=== PATIENT | female | born 1995 | race American Indian/Alaskan Native ===

== ENCOUNTER 2016-08-02 10:02 | Emergency (ER) | payer MEDICAID, OTHER ==
[2016-08-02 10:23] VITALS: BP 110/70
[2016-08-02] MEDS ORDERED: TYLENOL PO ONE (11:06)
--- NOTE | 2016-08-02 11:37 | Cat Scan Report ---
CT HEAD WITHOUT CONTRAST: 08/02/16 10:02:00 CLINICAL: Dizziness after being struck by a metal bar to the head and face. TECHNIQUE: 5-mm and 2.5-mm noncontrast scans. COMPARISON:None FINDINGS: Motion degrades the quality of the exam. The ventricles and sulci are normal for age. No abnormal density. No mass or mass effect. No hemorrhage, edema or extra-axial collection. The sinuses are clear. Normal orbits and soft tissues. The calvarium and skull base are intact. No fracture identified. IMPRESSION: Normal head CT.
--- NOTE | 2016-08-02 11:56 | XRay Report ---
RIGHT WRIST FOUR VIEWS: 08/02/16 11:07:00 CLINICAL: Trauma and pain. FINDINGS: Normal bones, joints and soft tissues. No fracture or dislocation. IMPRESSION: Normal
--- NOTE | 2016-08-02 12:14 | Emergency Department Report ---
Entered by LATRICE FONG, acting as scribe for FLAVIA FERRARO PA. ED Headache HPI - General Chief Complaint: Headache Stated Complaint: SWOLLEN RT EYE /MIGRAINE Time Seen by Provider: 08/02/16 10:56 Source: patient Exam Limitations: no limitations - History of Present Illness Initial Comments: 21 y/o female presents to ED c/o right facial pain, headache, dizziness, right wrist pain secondary to being struck by a metal bar at work yesterday, denying LOC. Pt states the bar struck her right eye and right arm. She reports associated nausea, but denies vomiting. Pt describes her dizziness as room spinning, and reports visual changes described as seeing dark spots. She states she is able to move her right wrist, but reports pain in supination and pronation. She reports recent in March, and is not currently . She has no additional complaints. Timing/Duration: constant Head Injury Location: other (right eye, cheek) Recent Head Trauma: other (struck by metal bar yesterday at work) Associated Symptoms: facial pain, nausea/vomiting (reports nausea, denies vomiting), vision changes (dark spots in vision), other (dizziness). denies: loss of consciousness Allergies/Adverse Reactions: Allergies No Known Allergies Allergy (Verified 01/10/15 11:17) Home Medications: Ambulatory Orders Caplet 0 mg PO QDAY 08/04/15 Ferrous Sulfate [Feosol 325 MG tab] 325 mg PO BID #60 tablet 03/18/16 HYDROcodone/APAP 5-325 [[place] 5/325] 1 each PO Q6HR PRN #30 tablet 03/18/16 Ibuprofen [Motrin] 800 mg PO Q8HR PRN #30 tablet 03/18/16 Vit W-Ca,Fe,FA(<1 mg) [ Vitamins] 1 each PO DAILY #30 tablet oxyCODONE /ACETAMINOPHEN [Percocet 5/325] 1 tab PO Q6HR PRN #30 tablet 03/20/16 Ibuprofen [Motrin 600 MG tab] 600 mg PO Q8H PRN #30 tablet 08/02/16 ED Review of Systems Comment: All other systems reviewed and negative Eyes: eye pain (right) Gastrointestinal: nausea. denies: vomiting Musculoskeletal: other (reports right wrist pain, painful range of motion) Skin: denies: lesions Neurological: headache, other (reports dizziness, room spinning, denies LOC) ED Past Medical Hx - Past Medical History Previous Medical History?: Yes Hx Hypertension: No Hx Congestive Heart Failure: No Hx Diabetes: No Hx Deep Vein Thrombosis: No Hx Renal Disease: No Hx Sickle Cell Disease: No Hx Seizures: No Hx Asthma: No Hx COPD: No Hx HIV: No Additional medical history: etopic . Miscarriage x 2 - Surgical History Additional Surgical History: etopic - Social History Smoking Status: Never Smoker Substance Use Type: None - Medications Home Medications: Home Medications Medication Instructions Recorded Confirmed Last Taken Type Caplet 0 mg PO QDAY 08/04/15 03/18/16 03/17/16 History Ferrous Sulfate [Feosol 325 MG tab] 325 mg PO BID #60 tablet 03/18/16 Unknown Rx HYDROcodone/APAP 5-325 [[place] 1 each PO Q6HR PRN #30 tablet 03/18/16 Unknown Rx 5/325] Ibuprofen [Motrin] 800 mg PO Q8HR PRN #30 tablet 03/18/16 Unknown Rx Vit W-Ca,Fe,FA(<1 mg) 1 each PO DAILY #30 tablet 03/18/16 Unknown Rx [ Vitamins] oxyCODONE /ACETAMINOPHEN [Percocet 1 tab PO Q6HR PRN #30 tablet 03/20/16 Unknown Rx 5/325] Ibuprofen [Motrin 600 MG tab] 600 mg PO Q8H PRN #30 tablet 08/02/16 Unknown Rx ED Physical Exam - General Limitations: No Limitations - Other Other exam information: GENERAL: Patient is alert and oriented x 3. No apparent distress, normal gait, atraumatic. HEAD: Tenderness to palpation over right lower cheek, lower periorbital structures. EYES: Extraocular movements are intact. Pupils are equal, round, and reactive to light and accommodation. EARS: Symmetrical, atraumatic, non tender, ear canal clear with moderate cerumen , tympanic membrane non inflamed. Gross auditory nml bilaterally. NOSE: Nose symmetrical, nontender. Nares appeared normal. MOUTH:Mouth is well hydrated and without lesions. Mucous membranes are moist. Uvula midline. Tongue not elevated. Posterior pharynx clear, no exudate or lesions. Tonsils are not erythematous or swollen. Patent airway. NECK: Supple. Non edematous, no carotid bruits. No lymphadenopathy or thyromegaly. LUNGS: Symmetrical with respiration. No wheezing, rales or crackles, CTAB. HEART: Regular rate and rhythm with normal S1/S2 present. No murmurs, rubs, or gallops. EXTREMITIES/MUSCULOSKELETAL: Noted is decreased range of motion with supination and pronation of right wrist, with tenderness to the lateral aspect of the right wrist, with no evidence of swelling. Patient is able to make a fist and move her fingers in her right hand. Strength 4/5 right hand. No cyanosis, clubbing, rash, lesions or edema. Pulses 2+ bilaterally. SKIN: Warm and dry. No lesions, ulceration or induration present NEUROLOGIC: No focal deficit., Cranial nerves II - XII are grossly intact. No loss of sensation. No facial droop. Negative romberg. PSYCHIATRIC: Mood is congruent with affect. Denies suicidal or homicidal ideations. ED Course Vital Signs 08/02/16 08/02/16 10:19 11:14 Temperature 98.4 F Pulse Rate 84 Respiratory 16 18 Rate Blood Pressure 110/70 O2 Sat by Pulse 100 Oximetry ED Medical Decision Making - Radiology Data Radiology results: report reviewed, image reviewed CT scan of head shows normal head CT. Three-view x-ray of right wrist shows normal impression. - Medical Decision Making 21 year old female patient presents today with right facial pain, headache, dizziness and associated nausea but no vomiting after being struck with a metal bar in her face at work yesterday. She also reports right wrist pain with painful range of motion, noting the bar also struck her arm. She denies loss of consciousness. Patient was administered Tylenol for pain, reporting relief in symptoms. She was also administered a Tetanus immunization booster. CT face reveals [...]. X-ray of face reveals [...]. X-ray of right wrist reveals [...]. Patient is in no acute distress at this time. She will be discharged home and is encouraged to follow up with a primary care provider. She is encouraged to return to the emergency room for any worsening symptoms. ED Disposition Clinical Impression: Headache Qualifiers: Headache type: unspecified Headache chronicity pattern: acute headache Intractability: intractable Qualified Code(s): R51 - Headache Contusion of right wrist Qualifiers: Encounter type: initial encounter Qualified Code(s): S60.211A - Contusion of right wrist, initial encounter Disposition: DISCHARGED TO HOME OR SELFCARE Is pt being admited?: No Does the pt Need Aspirin: No Condition: Stable Instructions: Acute Headache (ED), Wrist Injury (ED), Arthralgia (ED) Additional Instructions: Please note that CT was negative for any abnormalities, also note that your wrist x-ray was negative for any fractures or dislocation. I recommend continue with the ibuprofen as prescribed. Follow up with her primary care provider if symptoms persist or gets worse. Prescriptions: Ibuprofen [Motrin 600 MG tab] 600 mg PO Q8H PRN #30 tablet PRN Reason: Pain Referrals: PRIMARY CARE,MD [Primary Care Provider] - 3-5 Days Forms: Work/School Release Form(ED) This documentation as recorded by the [employer] wiley AHSAN,accurately reflects the service I personally performed and the decisions made by me,FLAVIA FERRARO PA.
[2016-08-02] MEDS ORDERED: BOOSTRIX IM ONE (12:22)
== END 2016-08-02 12:46 | disposition home or self-care (01) ==
LOC: ED 10:02
DX: S60.211A Contusion of right wrist, initial encounter (principal); R51 Headache; W22.8XXA Striking against or struck by other objects, initial encounter; Y93.89 Activity, other specified; Y92.89 Other specified places as the place of occurrence of the external cause; Y99.8 Other external cause status
CPT/HCPCS: 70450; 90471; 90715

== ENCOUNTER 2017-09-26 12:20 | Emergency (ER) | payer MEDICAID ==
[2017-09-26 12:28] VITALS: BP 122/82
[2017-09-26] MEDS ORDERED: MOTRIN PO ONE (14:18)
[2017-09-26] MEDS ORDERED: KEFLEX PO ONE (14:18)
[2017-09-26] MEDS ORDERED: TRIPLE ANTIBIOTIC TP ONE (14:18)
--- NOTE | 2017-09-26 14:18 | Emergency Department Report ---
- General Chief complaint: Wound/Laceration Stated complaint: Time Seen by Provider: 09/26/17 13:35 Source: patient, family Mode of arrival: Ambulatory Limitations: No Limitations - History of Present Illness Initial comments: This is 22-year-old female here status post scar 09/14/2017 that was sent by Dr. David Ward. Patient said that she noticed the left end of her wound is open in minimal drainage and she denies abdominal pain she just reports pain to touch. Patient states she did not look at the wound. She denies any fever or chills. Denies any urinary burning frequency or urgency. Past surgical history of 2 . Past medical history of 2 ectopic and miscarriage. Pain is steroid-dependent and stinging. Only hurts to touch. Does not hurt if not touch. No medication taken and she did not call her [facility] [employer] [facility]. MD complaint: other (postsurgical wound drainage) Onset/Timin -: days(s) Tetanus Up to Date: yes Severity: mild Severity scale (0 -10): 2 Quality: other (Stinging) Consistency: intermittent Improves with: none, rest Worsens with: palpation Context: other (postsurgical scar) Associated symptoms: denies other symptoms Treatments Prior to Arrival: none - Related Data Home Medications Medication Instructions Recorded Confirmed Last Taken Prena1 Chew Tablet 1 tab DAILY 09/14/17 09/14/17 1 Week Ago ~09/07/17 Previous Rx's Medication Instructions Recorded Last Taken Type Ferrous Sulfate [Feosol 325 MG tab] 325 mg PO BID #60 tablet 09/14/17 Unknown Rx HYDROcodone/APAP 5-325 [[place] 1 each PO Q6HR PRN #30 tablet 09/14/17 Unknown Rx 5/325] Pnv No.95/Ferrous Fum/Folic AC 1 each PO DAILY #30 tablet 09/14/17 Unknown Rx [ Vitamin Tablet] oxyCODONE /ACETAMINOPHEN [Percocet 1 tab PO Q6H PRN #30 tablet 09/16/17 Unknown Rx 5/325 mg] Cephalexin [Keflex] 500 mg PO Q8HR 7 Days #21 cap 09/26/17 Unknown Rx Ibuprofen [Motrin 800 MG tab] 800 mg PO Q8HR PRN #15 tablet 09/26/17 Unknown Rx Allergies Allergy/AdvReac Type Severity Reaction Status Date / Time No Known Allergies Allergy Verified 09/26/17 12:26 Abscess Boil HPI - HPI Chief Complaint: Wound/Laceration Stated Complaint: Time Seen by Provider: 09/26/17 13:35 Home Medications: Home Medications Medication Instructions Recorded Confirmed Last Taken Prena1 Chew Tablet 1 tab DAILY 09/14/17 09/14/17 1 Week Ago ~09/07/17 Previous Rx's Medication Instructions Recorded Last Taken Type Ferrous Sulfate [Feosol 325 MG tab] 325 mg PO BID #60 tablet 09/14/17 Unknown Rx HYDROcodone/APAP 5-325 [[place] 1 each PO Q6HR PRN #30 tablet 09/14/17 Unknown Rx 5/325] Pnv No.95/Ferrous Fum/Folic AC 1 each PO DAILY #30 tablet 09/14/17 Unknown Rx [ Vitamin Tablet] oxyCODONE /ACETAMINOPHEN [Percocet 1 tab PO Q6H PRN #30 tablet 09/16/17 Unknown Rx 5/325 mg] Cephalexin [Keflex] 500 mg PO Q8HR 7 Days #21 cap 09/26/17 Unknown Rx Ibuprofen [Motrin 800 MG tab] 800 mg PO Q8HR PRN #15 tablet 09/26/17 Unknown Rx Allergies/Adverse Reactions: Allergies Allergy/AdvReac Type Severity Reaction Status Date / Time No Known Allergies Allergy Verified 09/26/17 12:26 ED Review of Systems ROS: Stated complaint: Other details as noted in HPI Constitutional: denies: chills, fever ENT: denies: ear pain, throat pain, congestion Respiratory: denies: cough, shortness of breath, SOB with exertion, SOB at rest , stridor, wheezing Cardiovascular: denies: chest pain, palpitations, edema, syncope Endocrine: no symptoms reported Gastrointestinal: denies: abdominal pain, nausea, vomiting, diarrhea, hematemesis, hematochezia Genitourinary: denies: urgency, dysuria, frequency, hematuria, discharge, abnormal menses, dyspareunia Musculoskeletal: denies: back pain, joint swelling, arthralgia Skin: other (postsurgical scar with scant drainage at the left distal end. Very superficial and minimal tenderness to palpate). denies: rash, lesions Neurological: denies: headache, weakness, numbness, paresthesias, abnormal gait , vertigo ED Past Medical Hx - Past Medical History Previous Medical History?: Yes Hx Hypertension: No Hx Congestive Heart Failure: No Hx Diabetes: No Hx Deep Vein Thrombosis: No Hx Renal Disease: No Hx Sickle Cell Disease: No Hx Seizures: No Hx Asthma: No Hx COPD: No Hx HIV: No Additional medical history: etopic . Miscarriage x 2 - Surgical History Past Surgical History?: Yes Additional Surgical History: etopic - Family History Family history: hypertension - Social History Smoking Status: Current Every Day Smoker Substance Use Type: None - Medications Home Medications: Home Medications Medication Instructions Recorded Confirmed Last Taken Type Ferrous Sulfate [Feosol 325 MG tab] 325 mg PO BID #60 tablet 09/14/17 Unknown Rx HYDROcodone/APAP 5-325 [[place] 1 each PO Q6HR PRN #30 tablet 09/14/17 Unknown Rx 5/325] Pnv No.95/Ferrous Fum/Folic AC 1 each PO DAILY #30 tablet 09/14/17 Unknown Rx [ Vitamin Tablet] Prena1 Chew Tablet 1 tab DAILY 09/14/17 09/14/17 1 Week Ago History ~09/07/17 oxyCODONE /ACETAMINOPHEN [Percocet 1 tab PO Q6H PRN #30 tablet 09/16/17 Unknown Rx 5/325 mg] Cephalexin [Keflex] 500 mg PO Q8HR 7 Days #21 cap 09/26/17 Unknown Rx Ibuprofen [Motrin 800 MG tab] 800 mg PO Q8HR PRN #15 tablet 09/26/17 Unknown Rx ED Physical Exam - General Limitations: No Limitations General appearance: alert, in no apparent distress - Head Head exam: Present: atraumatic, normocephalic, normal inspection - Eye Eye exam: Present: normal appearance, PERRL, EOMI Pupils: Present: normal accommodation - ENT ENT exam: Present: normal exam, normal orophraynx, mucous membranes moist - Neck Neck exam: Present: normal inspection, full ROM, other (no C-spine tenderness). Absent: tenderness, meningismus, lymphadenopathy - Respiratory Respiratory exam: Present: normal lung sounds bilaterally. Absent: respiratory distress, chest wall tenderness - Cardiovascular Cardiovascular Exam: Present: regular rate, normal rhythm, normal heart sounds. Absent: systolic murmur, diastolic murmur - GI/Abdominal GI/Abdominal exam: Present: soft, tenderness (minimal tenderness to pelvic area at scar site left distal and), normal bowel sounds. Absent: distended , guarding, rebound, rigid - Extremities Exam Extremities exam: Present: normal inspection, full ROM, normal capillary refill , other (no clubbing, cyanosis or edema. +2 pulses to all extremities and no neurovascular compromise). Absent: tenderness, pedal edema, joint swelling, calf tenderness - Back Exam Back exam: Present: normal inspection, full ROM, other (ambulates without any difficulties). Absent: tenderness, CVA tenderness (R), CVA tenderness (L), muscle spasm, paraspinal tenderness, vertebral tenderness, rash noted - Neurological Exam Neurological exam: Present: alert, oriented X3, normal gait - Psychiatric Psychiatric exam: Present: normal affect, normal mood - Skin Skin exam: Present: warm, dry, intact, other (mild surgical wound dehisced at C- section scar site left distal and) - Expanded Skin Exam Expanded Description of rash: Present: tenderness (mild tenderness palpated scar site left and distally), erythematous (mild erythema left distal and), discharge (scant drainage with no odor). Absent: swelling, fluctuant, indurated ED Course Vital Signs 09/26/17 12:26 Temperature 98.8 F Pulse Rate 84 Respiratory 18 Rate Blood Pressure 122/82 O2 Sat by Pulse 98 Oximetry - Reevaluation(s) Reevaluation #1: 09/26/17 16:08 Patient given ibuprofen 800 mg by mouth and Keflex 500 mg by mouth and emergency room. Ibuprofen manage pain and Keflex to start for mild postsurgical wound infection. Wound care done. Surgical wound clinic normal saline at the site and Neosporin ointment followed by a dry sterile nonadhesive dressing. ED Medical Decision Making - Medical Decision Making ED course This is a 22-year-old patient here reports that she had on 09/14/2017 and 3 days ago her started draining and with some intermittent pain. Dr. David Ward did her and she did not get in touch with him. Patient says she came to the emergency room for evaluation. No medication taken. I examined patient and he is in stable condition. Pain is better with Motrin 800 mg by mouth. Wound dehisced left distal and of with scant amount of drainage. Dehisced is very superficial and minimal tenderness to palpate otherwise abdominal exam is normal. Diagnosis finding explained to patient and she voiced understanding andshe needs to follow up with [facility] in one to 2 days. A/P 1: Wound dehisced: Wound cleansed with normal saline and Neosporin ointment and sterile dry dressing placed side. 2: Postsurgical wound minor infection-Patient started on Keflex and will be discharged home in Keflex and Motrin. She is to follow-up with Dr. David Ward who is her [employer]INATOR in 1-2 days Prescription for Keflex and Motrin given to patient for discharge. She is educated on wound care, medication, diagnosis and need to follow-up. Patient discharged home in stable condition . Vital signs are stable and is afebrile. Patient to follow-up with Dr. David Ward her [employer] doctor in one to 2 days. . I also instructed her that if she developed increased redness, pain, swelling, fever and/or chills, to wound site to return to the emergency room [place]. She voiced understanding and and discharged home with her family. - Differential Diagnosis postsurgical wound abscess, cellulitis, scar infection Critical care attestation.: If time is entered above; I have spent that time in minutes in the direct care of this critically ill patient, excluding procedure time. ED Disposition Clinical Impression: Wound dehiscence, , Wound infection following section, Disposition: DC-01 TO HOME OR SELFCARE Is pt being admited?: No Does the pt Need Aspirin: No Condition: Stable Instructions: Acute Wound Care (ED), Surgical Site Infections (ED), Wound Dehiscence (ED) Additional Instructions: Take antibiotic as prescribed Follow-up with your [employer] Dr. David Ward in one to 2 days Keep affected area clean and dry. Followed discharge instruction on acute wound care . Please return to emergency room if you develop increasing redness, streaking, fever, increasing pain, wound site and increase in pain. Prescriptions: Cephalexin [Keflex] 500 mg PO Q8HR 7 Days #21 cap Ibuprofen [Motrin 800 MG tab] 800 mg PO Q8HR PRN #15 tablet PRN Reason: moderate to severe pain Referrals: DAVID WARD MD [Staff Physician] - 09/27/17
== END 2017-09-26 16:34 | disposition home or self-care (01) ==
LOC: ED 12:20
DX: O90.0 Disruption of cesarean delivery wound (principal); Z98.890 Other specified postprocedural states
CPT/HCPCS: 99282; A6250